=== PATIENT | male | born 1995 | race Caucasian/White ===

== ENCOUNTER 2016-07-18 22:17 | Emergency (ER) | payer OTHER ==
[~2016-07-18] VITALS: Ht 175.3 cm; Wt 2.5 kg
[2016-07-18 23:08] VITALS: BP 152/58
== END 2016-07-19 01:54 | disposition short-term general hospital (02) ==
LOC: ER 22:29
DX: S61.216A Laceration without foreign body of right little finger without damage to nail, initial encounter (principal); T18.9XXA Foreign body of alimentary tract, part unspecified, initial encounter; F17.210 Nicotine dependence, cigarettes, uncomplicated; F12.10 Cannabis abuse, uncomplicated
CPT/HCPCS: 94761